=== PATIENT | male | born 1960 | race Two or more races ===

== ENCOUNTER 2019-04-03 06:49 | Day surgery (SDC) | payer OTHER | END 2019-04-03 10:50 | disposition home or self-care (01) | LOC: AMB-ENDOS 06:49 | DX: D12.2 Benign neoplasm of ascending colon (principal); D12.3 Benign neoplasm of transverse colon; K64.1 Second degree hemorrhoids; Z12.11 Encounter for screening for malignant neoplasm of colon ==